=== PATIENT | male | born 1970 | race Caucasian/White ===

== ENCOUNTER 2017-06-07 20:01 | Emergency (ER) | payer SELFPAY ==
[~2017-06-07] VITALS: Ht 175.3 cm; Wt 77.0 kg
[~2017-06-07 20:01] MED LIST: MEDDOSEPAK PO; NO HOME MEDS
[2017-06-07 21:08] VITALS: BP 130/77
[2017-06-07] MEDS ORDERED: BENADRYL 50MG C50 MG PO (22:25)
[2017-06-07] MEDS ORDERED: PERCOCET 5/325M1 TAB PO (22:25)
[2017-06-07] MEDS ORDERED: BETAMETH DIP0.053 EX (22:25)
== END 2017-06-07 23:10 | disposition home or self-care (01) | DRG 607 ==
LOC: ED 20:01
DX: L30.9 Dermatitis, unspecified (principal); L97.519 Non-pressure chronic ulcer of other part of right foot with unspecified severity; L97.529 Non-pressure chronic ulcer of other part of left foot with unspecified severity

== ENCOUNTER 2018-10-17 06:26 | Emergency (ER) | payer SELFPAY ==
[~2018-10-17] VITALS: Ht 175.3 cm; Wt 64.4 kg
[~2018-10-17 06:26] MED LIST changes: +BENADRYL 50MG C50 MG PO; +BETAMETH DIP0.053 EX; +PERCOCET 5/325M1 TAB PO
[2018-10-17 06:36] VITALS: BP 112/75
== END 2018-10-17 07:00 | disposition left against medical advice (07) | DRG 951 ==
LOC: ED 06:26 → LWOBS 07:00
DX: Z91.19 Patient's noncompliance with other medical treatment and regimen (principal)

== ENCOUNTER 2019-04-03 04:01 | Emergency (ER) | payer SELFPAY ==
[~2019-04-03] VITALS: Ht 175.3 cm; Wt 59.0 kg
[2019-04-03] MEDS ORDERED: STERAPRED DS10 MG PO (05:08)
[2019-04-03] MEDS ORDERED: TRAMADOL HCL50 MG PO (05:08)
[2019-04-03 05:13] VITALS: BP 123/69
== END 2019-04-03 05:19 | disposition home or self-care (01) | DRG 74 ==
LOC: ED 04:01
DX: M54.12 Radiculopathy, cervical region (principal); F17.200 Nicotine dependence, unspecified, uncomplicated

== ENCOUNTER 2022-12-26 16:36 | Emergency (ER) | payer SELFPAY ==
[~2022-12-26] VITALS: Ht 175.3 cm; Wt 61.0 kg
[~2022-12-26 16:36] MED LIST changes: +STERAPRED DS10 MG PO; +TRAMADOL HCL50 MG PO
[2022-12-26 18:04] LABS: BASO% 0.7 % (0-3); EOS% 3.7 % (0-8); HEMATOCRIT 45.6 % (39.0-50.0); IMMATURE GRANULOCYTES 0.6 % (0.0-5.0); LYMPH% 21.1 % (15-41); MEAN CELL VOLUME 93.6 fL CALC (80.0-100.0); MEAN CORPUSCULAR HGB 29.2 pG CALC (26.0-32.0); MEAN CORPUSCULAR HGB CONC 31.1 g/dL CAL (32.0-36.0); NEUT# 6.64 thou/uL (1.82-7.42); NEUT% 66.9 % (42-76); RED BLOOD COUNT 4.87 mill/uL (4.70-6.10); RED CELL DISTRI WIDTH 12.8 % (11.5-15.5)
[2022-12-26 18:05] LABS: HEMOGLOBIN 14.2 g/dl (14.0-18.0)
[2022-12-26 18:14] LABS: ALKALINE PHOSPHATASE 64 u/l (38-126); ANION GAP 12 (6-22 (CALC)); BUN 8 mg/dL (9-20); BUN/CREATININE RATIO 11 (12-20 (CALC)); CARBON DIOXIDE 30 mmol/l (22-30); CHLORIDE 101 mmol/l (95-108); CREATININE 0.8 mg/dL (0.7-1.3); GFR FOR AFR.AMER. > 60 ML/MIN (>=60 (CALC)); GFR OTHER RACES > 60 ML/MIN (>=60 (CALC)); POTASSIUM 4.3 mmol/l (3.5-5.1); SGOT/AST 18 u/l (17-59); SODIUM 139 mmol/l (137-146)
[2022-12-26 18:19] LABS: ALBUMIN 3.5 g/dL (3.2-5.0); BILIRUBIN, TOTAL 0.3 mg/dL (0.2-1.3)
[2022-12-26 21:03] VITALS: BP 129/83
== END 2022-12-26 21:04 | disposition left against medical advice (07) | DRG 558 ==
LOC: ED 16:36
PROVIDERS: Family Medicine
DX: M72.6 Necrotizing fasciitis (principal); B95.7 Other staphylococcus as the cause of diseases classified elsewhere; B96.89 Other specified bacterial agents as the cause of diseases classified elsewhere; F17.200 Nicotine dependence, unspecified, uncomplicated
CPT/HCPCS: J1335